=== PATIENT | female | born 1985 | race American Indian/Alaskan Native ===

== ENCOUNTER 2018-02-02 13:09 | Emergency (ER) | payer MEDICAID ==
--- NOTE | 2018-02-02 14:30 | ED PDOC ---
Arrival/HPI - General Chief Complaint: Female Genitourinary Time Seen by Provider: 02/02/18 14:26 Historian: Patient - History of Present Illness Narrative History of Present Illness (Text): 02/02/18 16:33 32 year old female, whose past medical history includes A0, who presents to the Emergency department complaining of vaginal spotting x 2 days. Patient notes associated mid-lower abdominal pain. Patient describes pain as a mild cramp. Patient denies any fevers, chills, chest pain, shortness of breath, nausea, vomiting, diarrhea, back pain, neck pain, headache, dizziness, or any other complaint. Time/Duration: < week (2 days) Symptom Onset: Gradual Symptom Course: Unchanged Activities at Onset: Light Context: Home Past Medical History - Provider Review Nursing Documentation Reviewed: Yes - Infectious Disease Hx of Infectious Diseases: None - Psychiatric Hx Substance Use: No - Surgical History Hx Section: Yes - Anesthesia Hx Anesthesia: No Family/Social History - Physician Review Nursing Documentation Reviewed: Yes Family/Social History: Unknown Family HX Smoking Status: Former Smoker Hx Alcohol Use: No Hx Substance Use: No Allergies/Home Meds Allergies/Adverse Reactions: Allergies No Known Allergies Allergy (Verified 02/03/18 14:17) Review of Systems - Physician Review All systems were reviewed & negative as marked: Yes - Review of Systems Constitutional: Normal Eyes: Normal ENT: Normal Respiratory: Normal. absent: SOB, Cough Cardiovascular: Normal. absent: Chest Pain Gastrointestinal: Abdominal Pain (mid-lower abdominal cramps). absent: Diarrhea, Nausea, Vomiting Genitourinary Female: Vaginal Bleeding (spotting). absent: Dysuria, Frequency, Hematuria Musculoskeletal: Normal. absent: Back Pain, Neck Pain Skin: Normal. absent: Rash Neurological: Normal. absent: Headache, Dizziness Endocrine: Normal Hemo/Lymphatic: Normal Psychiatric: Normal Physical Exam Vital Signs Reviewed: Yes Vital Signs Temp Pulse Resp BP Pulse Ox 02/02/18 13:55 98.2 F 70 18 110/63 100 Temperature: Afebrile Blood Pressure: Normal Pulse: Regular Respiratory Rate: Normal Appearance: Positive for: Well-Appearing, Non-Toxic, Comfortable Pain Distress: None Mental Status: Positive for: Alert and Oriented X 3 - Systems Exam Head: Present: Atraumatic, Normocephalic Pupils: Present: PERRL Extroacular Muscles: Present: EOMI Conjunctiva: Present: Normal Mouth: Present: Moist Mucous Membranes Neck: Present: Normal Range of Motion Respiratory/Chest: Present: Clear to Auscultation, Good Air Exchange. No: Respiratory Distress, Accessory Muscle Use Cardiovascular: Present: Regular Rate and Rhythm, Normal S1, S2. No: Murmurs Abdomen: No: Tenderness, Distention, Peritoneal Signs Genitourinary/Pelvic Exam: Present: Vaginal Discharge (white, thick d/c; consistent with yeast infection). No: Vaginal Bleeding Back: Present: Normal Inspection Upper Extremity: Present: Normal Inspection. No: Cyanosis, Edema Lower Extremity: Present: Normal Inspection. No: Edema Neurological: Present: GCS=15, CN II-XII Intact, Speech Normal Skin: Present: Warm, Dry, Normal Color. No: Rashes Psychiatric: Present: Alert, Oriented x 3, Normal Insight, Normal Concentration Medical Decision Making ED Course and Treatment: 02/02/18 16:37 Impression: 32 year old female presents to the emergency department complaining of vaginal spotting x 2 days. Differential Diagnosis included but are not limited to: Threatened and Yeast infection Plan: -- Labs -- Tylenol -- US transvaginal -- Reassess and disposition Progress Notes: 02/02/18 17:08 US report was reviewed by me with patient. Upon reevaluation, pt feel better. No abdominal pain. Abdomen is nontender. Pt will f/u with [facility] in 1-2days. She was advised to no strenous activity or heavy lifting or sex until she follows up with her OBGYN. 02/02/18 17:16 US transvaginal reviewed, shows: IMPRESSION: Single live intrauterine gestation - Findings. Gestational age 6 weeks 5 days. There are 2 separate myometrial fundal fibroids the 1st measuring 3.75 x 2.54 x 2.89 cm and the 2nd 4.36 x 3.29 x 4.38 cm. The fibroids have hyperechoic presumably calcified rims. - Scribe Statement The provider has reviewed the documentation as recorded by the Scribe Yola Alamo All medical record entries made by the Scribe were at my direction and per sonally dictated by me. I have reviewed the chart and agree that the record accurately reflects my personal performance of the history, physical exam, medical decision making, and the department course for this patient. I have also personally directed, reviewed, and agree with the discharge instructions and disposition. Disposition/Present on Arrival - Present on Arrival Any Indicators Present on Arrival: No History of DVT/PE: No History of Uncontrolled Diabetes: No Urinary Catheter: No History of Decub. Ulcer: No History Surgical Site Infection Following: None - Disposition Have Diagnosis and Disposition been Completed?: Yes Diagnosis: Threatened , Vaginal candidiasis Disposition: HOME/ ROUTINE Disposition Time: 17:19 Patient Plan: Discharge Condition: IMPROVED Discharge Instructions (ExitCare): Vulvovaginal Yeast Infection, Bleeding With Additional Instructions: BROOKLYNN RAMÍREZ, thank you for letting us take care of you today. Your provider was Oh Aragon DO and you were treated for Threatened , Vaginal Candidiasis. The emergency medical care you received today was directed at your acute symptoms. If you were prescribed any medication, please fill it and take as directed. It may take several days for your symptoms to resolve. Return to the Emergency Department if your symptoms worsen, do not improve, or if you have any other problems. Please contact your doctor or call one of the physicians/clinics you have been referred to that are listed on the Patient Visit Information form that is included in your discharge packet. Bring any paperwork you were given at discharge with you along with any medications you are taking to your follow up visit. Our treatment cannot replace ongoing medical care by a primary care provider outside of the emergency department. Thank you for allowing the [facility] team to be part of your care today. If you had an X-Ray or CT scan: A Radiologist will review the ED reading if any change in treatment is needed we will contact you. If you had a blood, urine, or wound culture: It will take several days for the results, if any change in treatment is needed we will contact you. If you had an STI test: It will take 48 hours for the results. Please call after 1 week if you have not heard back. Prescriptions: Clotrimazole 1% Vaginal [Lotrimin 1% Vaginal] 1 appl VG QPM #1 tube Vit Calc,Iron,Folic [ Vitamins] 1 each PO DAILY #30 tablet Referrals: Can Turner DO [Staff Provider] - Follow up with primary Forms: Localist ([place]), WORK NOTE
[2018-02-02 15:25] LABS: PARTIAL THROMBOPLASTIN TIME 31.3 Seconds (25.1-36.5)
[2018-02-02 15:27] VITALS: RESP 19; TEMP 98
[2018-02-02 15:29] LABS: GRAN % 52.8 % (50.0-68.0); HEMOGLOBIN 10.8 g/dL (12.0-16.0); LYMPH % 36.6 % (22.0-35.0); MEAN CELL VOLUME 93.4 fl (80.0-105.0); MEAN CORPUSCULAR HEMOGLOBIN 31.2 pg (25.0-35.0); MEAN CORPUSCULAR HGB CONC 33.4 g/dl (31.0-37.0); MEAN PLATELET VOLUME 10.2 fl (7.0-11.0); RBC 3.46 10^6/uL (3.5-6.1); RED CELL DISTRIBUTION WIDTH 11.9 % (11.5-14.5); WHITE BLOOD COUNT 9.2 10^3/ul (4.5-11.0)
[2018-02-02 15:30] LABS: BASO # 0.03 K/mm3 (0.0-2.0); BASO % 0.3 % (0.0-3.0); EOS # 0.2 (0.0-0.7); EOS % 2.3 % (1.5-5.0); GRAN # 4.87 (1.4-6.5); LYMPH # 3.4 (1.2-3.4); MONO # 0.7 (0.1-0.6)
[2018-02-02 15:32] LABS: URINE APPEARANCE CLEAR (CLEAR); URINE BILIRUBIN NEGATIVE (NEGATIVE); URINE COLOR YELLOW (YELLOW); URINE GLUCOSE (UA) NEGATIVE (NEGATIVE)
[2018-02-02 15:33] LABS: ALB/GLOB RATIO 1.1 (1.1-1.8); ALBUMIN 3.7 g/dL (3.0-4.8); ALT/SGPT 24 U/L (7-56); AST/SGOT 23 U/L (14-36); BLOOD UREA NITROGEN 10 mg/dL (7-21); GFR NON-AFRICAN AMERICAN > 60; URINE BLOOD NEGATIVE (NEGATIVE); URINE LEUKOCYTE ESTERASE NEGATIVE Leu/uL (NEGATIVE); URINE PROTEIN NEGATIVE mg/dL (<30 mg/dL)
[2018-02-02 15:34] LABS: INR 0.97
--- NOTE | 2018-02-02 16:47 | US ---
Date of service: 02/02/2018 PROCEDURE: OB Pelvic Ultrasound HISTORY: preg with vag bleed and low abd pain COMPARISON: None available. FINDINGS: UTERUS: Single Live intrauterine gestation. CRL equivalent to 7 weeks 4 days gestatioin Gestational sac diameter equivalent to 5 weeks 6 days gestation age (Ultrasound estimated): 6 weeks 5 days Date of delivery (Ultrasound estimated) : 09/23/2018 Heart rate: 125 bpm. Naheed-gestational hemorrhage: None. Uterus measures 9.01 x 3.59 x 7 cm. There are 2 separate myometrial fundal fibroids the 1st measuring 3.75 x 2.54 x 2.89 cm and the 2nd 4.36 x 3.29 x 4.38 cm. The fibroids have hyperechoic presumably calcified rims. CERVIX: Long and closed. No cervical abnormality seen. 3.5 cm length RIGHT OVARY: Measures 2.02 x 1.77 x 2.38 cm. No mass. Normal flow. LEFT OVARY: Not visualized FREE FLUID: None. OTHER FINDINGS: None. IMPRESSION: Single live intrauterine gestation - Findings. Gestational age 6 weeks 5 days. There are 2 separate myometrial fundal fibroids the 1st measuring 3.75 x 2.54 x 2.89 cm and the 2nd 4.36 x 3.29 x 4.38 cm. The fibroids have hyperechoic presumably calcified rims.
[2018-02-02 17:19] VITALS: BP 126/53; PULSE 75; O2SAT 99
== END 2018-02-02 17:19 | disposition home or self-care (01) ==
LOC: ED 13:09
DX: O20.0 Threatened abortion (principal); O98.811 Other maternal infectious and parasitic diseases complicating pregnancy, first trimester; B37.3 Candidiasis of vulva and vagina; Z3A.01 Less than 8 weeks gestation of pregnancy